=== PATIENT | female | born 1955 | race Caucasian/White ===

== ENCOUNTER 2019-02-27 07:32 | Emergency (ER) | payer OTHER ==
[~2019-02-27] VITALS: Ht 157.5 cm; Wt 70.3 kg
--- OUTSIDE RECORDS SUMMARY | 2019-02-27 07:34 | XMS REPORT | Clinical Summary ---
Author Author [facility] Address Unknown Phone Unavailable Care Team Providers Care Log Skidder Name Role Phone Wale Perera MD PCP Allergies Comments Active Allergy Reactions Severity Noted Date Iodine 10/14/2016 Medications End Date Status Medication Sig Dispensed Refills Start Date Active lisinopril TK 1 T PO D 0 (PRINIVIL,ZESTRIL) 40 mg 7 tablet Active Problems Not on file Family History Medical History Relation Name Comments Hypertension Mother Relation Name Status Comments Mother Social History Date Tobacco Use Types Packs/Day Years Used Never Smoker Alcohol Use Drinks/Week oz/Week Comments Yes occasionally Sex Assigned at Date Recorded Not on file Industry Job Start Date Occupation Not on file Not on file Not on file Travel End Travel History Travel Start No recent travel history available. Last Filed Vital Signs Not on file Plan of Treatment Health Maintenance Due Date Last Done Comments BREAST CANCER SCREENING 2007 COLONOSCOPY SCREENING 2007 SHINGLES VACCINES (#1) 2007 INFLUENZA VACCINE 03/09/2019 Results Not on fileafter 02/26/2018 Insurance Type Payer Benefit Subscriber ID Effective Phone Address Plan / Dates Group PPO [facility] xxxxxxxxx [id number] [id number]ERCIAL HMO/POS/PP O Advance Directives Patient has advance care planning documents on file. For more information, tequila de guzman contact: Carlos Bailey [address] [place] [address]
--- NOTE | 2019-02-27 09:02 | Diagnostic Imaging Report ---
Exam: Right elbow Series. History: Fall Comparison: None Findings: 3 views of the right elbow demonstrate acute minimally displaced radial head fracture with associated elbow joint effusion and elevation of the posterior fat pad. Impression: Acute minimally displaced radial head fracture with associated elbow joint effusion. Signed by: Yadira Candelaria MD on 02/27/2019 8:59 AM
--- NOTE | 2019-02-27 09:04 | Diagnostic Imaging Report ---
Right Shoulder - 2 Views HISTORY: Trauma COMPARISON: None FINDINGS: No acute fracture or dislocation. The visualized portions of the right lung are clear. IMPRESSION: No acute osseous injury of the right shoulder. Signed by: Yadira Candelaria MD on 02/27/2019 9:01 AM
[2019-02-27 09:15] VITALS: BP 127/85
== END 2019-02-27 09:24 | disposition home or self-care (01) ==
LOC: FSED 07:32
DX: S52.121A Displaced fracture of head of right radius, initial encounter for closed fracture (principal); Y93.55 Activity, bike riding; V19.9XXA Pedal cyclist (driver) (passenger) injured in unspecified traffic accident, initial encounter; Y92.410 Unspecified street and highway as the place of occurrence of the external cause; I10 Essential (primary) hypertension
CPT/HCPCS: 99283